=== PATIENT | female | born 1935 | race Hispanic/Latino ===

== ENCOUNTER 2017-11-16 19:04 | Observation (INO) | payer MEDICARE ==
[~2017-11-16] VITALS: Ht 157.5 cm; Wt 52.6 kg
[2017-11-16 19:24] LABS: BASOPHILS % (AUTO) 0.9 % (0.0-5.0); EOSINOPHILS % (AUTO) 1.3 % (0.0-8.0); HEMATOCRIT 34.3 % (36-48); LYMPHOCYTES % (AUTO) 17.3 % (21.0-51.0); MEAN CORPUSCULAR HEMOGLOBIN 32.3 pg (27.0-33.0); MEAN CORPUSCULAR VOLUME 92.4 fL (79-99); MONOCYTES % (AUTO) 7.4 % (3.0-13.0); NEUTROPHILS % (AUTO) 73.1 % (40.0-77.0); PLATELET COUNT (AUTO) 237 K/uL (130-400); RED BLOOD CELL COUNT(AUTO) 3.71 MIL/uL (4.00-5.50); RED CELL DISTRIBUTION WIDTH 12.9 % (11.0-15.5); WHITE BLOOD COUNT (AUTO) 6.8 K/uL (4.8-10.8)
[2017-11-16 19:32] LABS: CREATININE 0.9 mg/dL (0.5-1.5); POTASSIUM 3.8 mmol/L (3.5-5.1)
[2017-11-16 19:36] LABS: ALBUMIN 3.5 g/dL (3.5-5.0); BILIRUBIN,TOTAL 0.5 mg/dL (0.2-1.0); TOTAL PROTEIN, SERUM 7.1 g/dL (6.0-8.3)
[2017-11-16] MEDS ORDERED: ASPIRIN 325 MG TABLET ONE (20:02)
[2017-11-16 23:14] VITALS: BP 163/88
[2017-11-17] MEDS ORDERED: ASPI-555 PO (00:23)
[2017-11-17] MEDS ORDERED: LEVO88TA7 PO (00:24)
[2017-11-17] MEDS ORDERED: MULT-1203 PO (00:25)
[2017-11-17] MEDS ORDERED: METO-391 PO (00:25)
[2017-11-17 03:00] VITALS: BP 122/59
[2017-11-17 08:00] VITALS: BP 142/75
[2017-11-17] MEDS: LEVOTHYROXINE 88 MCG TABLET PO SCH (08:00)
[2017-11-17] MEDS ORDERED: SODIUM CHLORIDE 0.9% 10 ML VIAL IVP PRN (08:00)
[2017-11-17] MEDS ORDERED: NON-FORMULARY MEDICATION 1 EACH (Multivitamin (Multi Vitamin Daily) 1 EACH) PO SCH (08:00)
[2017-11-17] MEDS: ENOXAPARIN SODIUM 60 MG/0.6 ML SQ SCH ×2 (08:00→20:12)
[2017-11-17] MEDS: ASPIRIN 81 MG EC TAB PO SCH (09:00)
[2017-11-17] MEDS: CLOPIDOGREL BISULFATE 75 MG TAB PO SCH (09:00)
[2017-11-17] MEDS: METOPROLOL TARTRATE 25 MG TAB PO SCH ×2 (09:00→20:10)
[2017-11-17] MEDS: MULTIVITAMIN TABLET PO SCH (09:00)
[2017-11-17 11:00] VITALS: BP 146/76
[2017-11-17] MEDS ORDERED: REGADENOSON 0.4 MG/5 ML PF SYG IVP SCH (11:00)
[2017-11-17 16:00] VITALS: BP 150/74
[2017-11-17 19:00] VITALS: BP 130/67
[2017-11-17 23:00] VITALS: BP 125/66
[2017-11-18 03:00] VITALS: BP 133/74
[2017-11-18 08:00] VITALS: BP 140/69
[2017-11-18] MEDS: METOPROLOL TARTRATE 25 MG TAB PO SCH (09:00)
[2017-11-18] MEDS: MULTIVITAMIN TABLET PO SCH (09:13)
[2017-11-18] MEDS: LEVOTHYROXINE 88 MCG TABLET PO SCH (09:13)
[2017-11-18] MEDS: ASPIRIN 81 MG EC TAB PO SCH (09:13)
[2017-11-18] MEDS: CLOPIDOGREL BISULFATE 75 MG TAB PO SCH (09:13)
[2017-11-18 11:00] VITALS: BP 134/76
== END 2017-11-18 16:01 | disposition home or self-care (01) ==
LOC: EDH 19:04 → EDHIP 21:25 → 3CH 22:02
PROVIDERS: ADMIT Internal Medicine; ATTEND Internal Medicine
DX: I24.9 Acute ischemic heart disease, unspecified (principal); R07.89 Other chest pain; I10 Essential (primary) hypertension; E03.9 Hypothyroidism, unspecified; Z86.73 Personal history of transient ischemic attack (TIA), and cerebral infarction without residual deficits; Z90.710 Acquired absence of both cervix and uterus; F03.90 Unspecified dementia, unspecified severity, without behavioral disturbance, psychotic disturbance, mood disturbance, and anxiety
CPT/HCPCS: 36415; 71045; 78452; 80053; 84484; 85025; 93005; 93017; 96372; 99285; A9500 ×2; G0378 ×43; J1650; J2785; 96374

== ENCOUNTER 2023-08-10 04:34 | Observation (INO) | payer OTHER, MEDICARE ==
[~2023-08-10] VITALS: Ht 152.4 cm; Wt 66.2 kg
[~2023-08-10 04:34] MED LIST: ASPI-556 PO; LEVO88TA7 PO; METO-391 PO; MULT-1203 PO
[2023-08-10 05:15] LABS: BASOPHILS # (AUTO) 0.06 K/uL (0.00-0.20); BASOPHILS % (AUTO) 0.9 % (0.0-5.0); EOSINOPHILS # (AUTO) 0.19 K/uL (0.00-0.70); HEMATOCRIT 34.8 % (36-48); IMMATURE GRANULOCYTE ABSOLUTE 0.03 K/uL (0-1); LYMPHOCYTES # (AUTO) 2.1 K/uL (1.0-4.8); LYMPHOCYTES % (AUTO) 32.6 % (21.0-51.0); MEAN CORPUSCULAR HEMOGLOBIN 33.1 pg (27.0-33.0); MEAN CORPUSCULAR HGB CONC 34.2 g/dL (32.0-36.0); MEAN CORPUSCULAR VOLUME 96.7 fL (79-99); MONOCYTES # (AUTO) 0.7 K/uL (0.1-1.0); MONOCYTES % (AUTO) 10.3 % (3.0-13.0); NEUTROPHILS # (AUTO) 3.4 K/uL (1.8-7.7); NEUTROPHILS % (AUTO) 52.7 % (40.0-77.0); PLATELET COUNT (AUTO) 201 K/uL (130-400); RED CELL DISTRIBUTION WIDTH 12.1 % (11.0-15.5); WHITE BLOOD COUNT (AUTO) 6.4 K/uL (4.8-10.8)
[2023-08-10] MEDS ORDERED: IOHEXOL-350 75 ML VIAL IV ONE (05:21)
[2023-08-10 05:25] LABS: ALBUMIN 3.1 g/dL (3.5-5.0); BILIRUBIN,TOTAL 0.4 mg/dL (0.2-1.0); INR 0.94 (0.85-1.15); PROTHROMBIN TIME 10.9 SEC (9.6-11.6); TOTAL PROTEIN, SERUM 6.7 g/dL (6.0-8.3)
[2023-08-10 05:27] LABS: PARTIAL THROMBOPLASTIN TIME 27.3 SEC (26.3-35.5)
[2023-08-10 05:41] LABS: B-TYPE NATRIURETIC PEPTIDE 84 pg/mL (0-100)
[2023-08-10 07:06] LABS: APPEARANCE,URINE CLEAR (CLEAR); BILIRUBIN,URINE NEGATIVE (NEGATIVE); COLOR,URINE COLORLESS (YELLOW); GLUCOSE, URINE (UA) NEGATIVE (NEGATIVE); KETONES,URINE NEGATIVE (NEGATIVE); LEUKOCYTE ESTERASE ,URINE NEGATIVE Leu/uL (NEGATIVE); NITRATE,URINE NEGATIVE (NEGATIVE); OCCULT BLOOD,URINE NEGATIVE (NEGATIVE); PH,URINE 7.5 (5.0-8.0); PROTEIN,URINE NEGATIVE (NEGATIVE); UROBILINOGEN,URINE 0.2 mg/dL (0.2-1.0)
[2023-08-10 07:12] LABS: ADD UA MICROSCOPIC NO
[2023-08-10 12:25] VITALS: BP 158/68; PULSE 72; RESP 17; O2SAT 97
== END 2023-08-10 13:10 | disposition home or self-care (01) ==
LOC: EDH 04:34 → EDHIP 06:53
PROVIDERS: ADMIT Internal Medicine; ATTEND Internal Medicine
DX: R20.0 Anesthesia of skin (principal); R20.2 Paresthesia of skin; R20.8 Other disturbances of skin sensation; E03.9 Hypothyroidism, unspecified; I10 Essential (primary) hypertension; I65.22 Occlusion and stenosis of left carotid artery; F03.90 Unspecified dementia, unspecified severity, without behavioral disturbance, psychotic disturbance, mood disturbance, and anxiety; Z86.73 Personal history of transient ischemic attack (TIA), and cerebral infarction without residual deficits; Z79.82 Long term (current) use of aspirin
CPT/HCPCS: 82550; 83721; 84484; 80053; 83880; 85025; 85610; 85730; 82948; 81003; 36415; 71045; 70450; 70496; 70498; 70551; 99291; 93005; G0378 ×6; Q9967